=== PATIENT | male | born 1950 | race Caucasian/White ===

== ENCOUNTER 2017-06-11 09:58 | Observation (INO) | payer OTHER ==
[~2017-06-11] VITALS: Ht 180.3 cm; Wt 89.5 kg
--- NOTE | ~2017-06-11 | PRECARD ---
[facility] [address] [facility] [place]. [address] NAME: BENITO MCPHERSON : [birth year] STATUS : ADM IN [facility]#: [id number] AGE: 67 ADM/REG DATE : 06/11/17 MR#: [id number] REPORT SERV DATE: 06/11/17 DICTATED BY: IDALIA ALSTON DATE: 06/11/17 REPORT STATUS : Draft TRANSCRIBED BY: SUZY DATE: 06/11/17 DATE OF ADMISSION: 06/11/2017 CHIEF COMPLAINT: Presyncope. HISTORY OF PRESENT ILLNESS: The patient is a 67-year-old male with carcinoid disease and carcinoid syndrome followed by Dr. Alec Rhoades in Oncology. The patient was seen by his primary care physician for multiple presyncopal episodes. He describes a sensation of lightheadedness with sudden onset of severe weakness followed by sensation that he might pass out. He reports mild dimming of his vision. He then sits down with resolution after several seconds to a minute. A Holter monitor was ordered and the Holter monitor subsequently demonstrated multiple runs of ventricular tachycardia. The patient reports that of late he has been having more frequent serotonin syndrome flushing. These symptoms are completely dissimilar to his presyncopal episodes. PAST MEDICAL HISTORY: 1. 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 Alec Rhoades in Oncology. 2. 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 SOCIAL HISTORY: Denies previous tobacco, alcohol, or illicit drug use. FAMILY HISTORY: Noncontributory. REVIEW OF SYSTEMS: Negative for all organ systems except per the history of present illness. ALLERGIES: PENICILLIN WITH RASH. HOME MEDICATIONS: Diindolylmethane 200 mg daily, multivitamin daily, [id number] potassium 99 mg b.i.d., a probiotic tablet daily, Metamucil daily, and tramadol 50 mg one tablet q.6 hours p.r.n. pain. Somatuline depot injection 120 mg per 0.5 mL; 0.5 mL subcutaneously q.4 hours. PHYSICAL EXAMINATION: VITAL SIGNS: Blood pressure 158/85, pulse 60, weight 198 pounds, and respirations 12 and unlabored. Orthostatic vital signs are negative. GENERAL: Elderly male in no acute distress. HEENT: Normal. NECK: Supple, no JVD or bruit, normal carotid upstroke bilaterally, no thyromegaly. LUNGS: Clear to auscultation and percussion. No wheezes, rales or rhonchi. No use of accessory muscles. CARDIOLOGY: Regular rhythm, normal S1, S2, no thrill, no murmur, rubs or gallops, normal PMI. ABDOMEN: Bowel sounds positive, soft, nontender, and nondistended. No masses or aortic [facility] [address] [id number] [place]. [address] NAME: BENITO MCPHERSON : [birth year] STATUS : ADM IN PAT#: [id number] AGE: 67 ADM/REG DATE : 06/11/17 MR#: [id number] REPORT SERV DATE: 06/11/17 DICTATED BY: IDALIA ALSTON DATE: 06/11/17 REPORT STATUS : Draft TRANSCRIBED BY: MODL DATE: 06/11/17 bruits. No hepatosplenomegaly or hepatojugular reflux. EXTREMITIES: Trace edema of the ankles bilaterally. SKIN: Warm and dry, no significant rash. NEUROLOGIC: Alert and oriented x3. Appropriate mood. DATA: Holter monitor on 06/03/2017; multiple runs of nonsustained ventricular tachycardia with heart rates as rapid as 120 beats per minute. IMPRESSION: Presyncope with recurrent ventricular tachycardia noted on Holter monitor. The patient is admitted to the cardiac Short-Stay Unit for further evaluation. Echocardiogram has been ordered today to re-evaluate the left ventricular systolic function. We have recommended cardiac catheterization with intervention as indicated to rule out flow-limiting coronary artery disease. The risks, benefits, and alternatives of the procedure have been discussed with the patient. The patient's questions have been answered. The patient voiced his understanding of the potential risks and desires to proceed. We have scheduled the patient for cardiac MRI in the a.m. to rule out carcinoid infiltration of the myocardium as a contributor to the arrhythmia. The arrhythmia also may be secondary to serotonin stimulation. We have requested Electrophysiology consultation as an inpatient with consideration/plan for possible electrophysiology stimulation study tomorrow and consideration for permanent defibrillator implantation based upon that testing. Further recommendations based upon the workup as described above. CSL/MODL Deborah Alston M.D. / [id number] CC: Deborah Alston M.D.
--- NOTE | ~2017-06-11 | CN ---
Consultation Report [facility] [address] [place]. [address] NAME: BENITO CALDERÓN : [birth year] STATUS : ADM IN PAT#: [id number] AGE: 67 ADM/REG DATE : 06/11/17 MR#: [id number] REPORT SERV DATE: 06/11/17 DICTATED BY: MICHA GRIFFIN DATE: 06/11/17 REPORT STATUS : Draft TRANSCRIBED BY: MODL DATE: 06/11/17 ELECTROPHYSIOLOGY CONSULTATION DATE OF CONSULTATION: REASON FOR CONSULTATION: Near syncope and ventricular tachycardia. HISTORY OF PRESENT ILLNESS: Mr. Calderón is a very pleasant 67-year-old gentleman with longstanding history of carcinoid disease followed by Dr. Alec Rhoades in Oncology. He has had right heart involvement from the carcinoid and is status post a porcine tricuspid valve replacement for severe tricuspid regurgitation. This was performed by Dr. Wiley Wakefield approximately one year ago. In recent weeks, he has had two episodes of near syncope. 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 On another event, he had just walked downstairs, he did not have significant exertion at that time, and then again felt quite dizzy and lightheaded, needed to lie down until the feeling passed and then it resolved. He denied any palpitations during these events. The patient went to see his primary care physician for these complaints and a Holter monitor was placed. This demonstrated a 28-beat run of wide-complex tachycardia, rate of approximately 135 beats per minute and would seem to be consistent with ventricular tachycardia. He had demonstration of mild bradycardia with average heart rate in the 50s. The longest R to R interval was 2 seconds. There was no profound daytime bradycardia. Apparently, the patient has had known history of sinus bradycardia for many years without any significant symptoms. PAST MEDICAL HISTORY: Notable for carcinoid disease, multiple metastatic hepatic lesions, and right heart involvement with severe tricuspid regurgitation, status post porcine tricuspid valve replacement on 03/12/[address] Wiley Wakefield. HOME MEDICATIONS: Include tramadol, Diindolylmethane 200 mg daily, multivitamin, potassium, probiotic tablet, Somatuline Depot injection. FAMILY HISTORY: Noncontributory. Negative for premature coronary disease. SOCIAL HISTORY: Negative for tobacco, alcohol, or illicit drug use. He is . REVIEW OF SYSTEMS: As noted above. All other systems reviewed and negative. PHYSICAL EXAMINATION: VITAL SIGNS: His blood pressure is 160/90, his pulse is 60 in sinus rhythm with occasional drops in heart rate into the low 50s, respirations 16. GENERAL: Well developed, well nourished. He is in no acute distress. Consultation Report [address] [place]. [address] NAME: BENITO CALDERÓN : [birth year] STATUS : ADM IN PAT#: [id number] AGE: 67 ADM/REG DATE : 06/11/17 MR#: [id number] REPORT SERV DATE: 06/11/17 DICTATED BY: MICHA GRIFFIN DATE: 06/11/17 REPORT STATUS : Draft TRANSCRIBED BY: SUZY DATE: 06/11/17 HEENT: No icterus. Good dentition. NECK: Supple. No masses or thyromegaly LUNGS: Breathing comfortably. No rales or wheezes. COR: Normal S1, S2. No S3 or S4. No murmurs, clicks, rubs. No JVD. ABD: Soft, nondistended, nontender, no hepatosplenomegaly. EXT: No clubbing, cyanosis, or edema. Peripheral pulses 2+/=bilaterally. SKIN: Warm and dry. No visible lesions. MS: Chest wall without deformity, no obvious clavicular fractures. NEURO/PSYCH: Oriented X3. No anxiety or depression. EKG shows sinus rhythm, normal HI, QRS, QT intervals. No evidence for ischemia, infarction, or chamber hypertrophy. IMPRESSION: Somewhat complicated patient with longstanding history of carcinoid disease and right heart involvement. He has a porcine tissue valve tricuspid valve replacement which makes access to the right ventricle difficult. He has presyncope and has had a long run of nonsustained wide-complex tachycardia, rate of 135 beats per minute noted on his Holter monitor. He also has intermittent sinus bradycardia that has been notable for several years and has been asymptomatic in the past. The bradycardia did not demonstrate any profound daytime events with the longest R to R interval 2 seconds. As far as the ventricular tachycardia is concerned, it is a long run of ventricular tachycardia but still considered nonsustained ventricular tachycardia. It was not clearly symptomatic at the time of the event. I believe he would need an electrophysiology study to determine whether he is a candidate for a defibrillator. He did undergo an echocardiogram today, which showed a reduced systolic function of approximately 40-45%. It is somewhat unclear whether we can easily place a catheter across the tricuspid valve. If not, my recommendation would be that we perform an electrophysiology study via a retrograde approach through the aorta and pacing the left ventricle. We would do this following the left heart catheterization being performed to rule out coronary disease, so we would already have femoral arterial access in place. Once we have the information as to whether he has easily inducible for ventricular tachycardia, we can decide whether he requires consideration for defibrillator. At that point, we must decide whether he could undergo a transvenous ICD system. I would be concerned about this given his history of carcinoid syndrome, tricuspid valve replacement, risks of scarring of the porcine valve, or malfunction of the ICD lead. Another course of action would be to have him undergo a subcutaneous ICD placement, although we would need to decide on whether he would need backup pacing or not. It is my understanding that he probably could have an S-ICD placed at the same time that he has a transvenous pacing system, either paced via AAI pacemaker or potentially through a His-bundle pacemaker. UGO/SZUY Micha Griffin M.D. Consultation Report [address] [address] NAME: BENITO CALDERÓN : [birth year] STATUS : ADM IN [facility]#: [id number] AGE: 67 ADM/REG DATE : 06/11/17 MR#: [id number] REPORT SERV DATE: 06/11/17 DICTATED BY: MICHA GRIFFIN DATE: 06/11/17 REPORT STATUS : Draft TRANSCRIBED BY: SUZY DATE: 06/11/17 / [id number] CC: Deborah Alston M.D.
[~2017-06-11 09:58] MED LIST: AHCC PO; ASA5GR PO; BENTYL10 PO; CALCIUM PO; CO Q-10100 MG PO; COSAMIN DS1 TAB PO; COUMADIN4 MG PO; DIM PO; L20 PO; LOP25 PO; MULTIPLE VIT PO; POTASSIUM AMINO ACID PO; POTASSIUM PO; PRIN20 PO; PROAIRRESP INH; PROBIOTIC PO; PROCTOZONE1 CRE PR; SOMATULINE SC; SOMATULINE90 MG/0.3 SC; ULTRAM50 PO; VITAMIN D31000 UNIT PO; VITC500 PO; ZESTORETIC1 TAB PO; [UNRECOGNIZED DRUG - MIXTURE] PO; [UNRECOGNIZED DRUG - OTHER]; [UNRECOGNIZED DRUG - OTHER]; [UNRECOGNIZED DRUG - OTHER] PO; [UNRECOGNIZED DRUG - OTHER] PO
[2017-06-11 10:50] LABS: BASOPHILS 0.5 %; BASOPHILS ABSOLUTE 0.04 10/3/uL (0.0-0.16); EOSINOPHILS 2.8 %; EOSINOPHILS ABSOLUTE 0.21 10/3/uL (0.0-0.53); HEMATOCRIT 41.1 % (40.0-51.0); HEMOGLOBIN 12.9 g/dL (13.6-17.8); IMMATURE GRANULOCYTES 0.3 %; IMMATURE GRANULOCYTES ABSOLUTE 0.02 10/3/uL (0.0-0.11); LYMPHOCYTES 21.8 %; LYMPHOCYTES ABSOLUTE 1.63 10/3/uL (0.67-4.30); MEAN CORPUS HGB CONC 31.4 g/dL (32.0-36.0); MEAN CORPUSCULAR HEMOGLOB 27.2 pg (26.0-34.0); MEAN PLATELET VOLUME 10.5 fL (9.2-13.0); MONOCYTES 9.6 %; MONOCYTES ABSOLUTE 0.72 10/3/uL (0.21-1.20); NEUTROPHILS ABSOLUTE 4.86 10/3/uL (2.02-8.40); PLATELET COUNT 265 10/3/uL (150-400); RBC DISTRIBUTION WIDTH 15.4 % (12.0-16.0); RED CELL COUNT 4.75 10/6/uL (4.7-6.1); WHITE BLOOD CELLS 7.5 10/3/uL (4.5-10.5)
[2017-06-11 10:54] LABS: MANUAL DIFF NO %; MEAN CORPUSCULAR VOLUME 86.5 fL (80-100)
[2017-06-11] MEDS ORDERED: METPAKSF PO (10:56)
[2017-06-11] MEDS ORDERED: NAC600 MG PO (10:58)
[2017-06-11] MEDS ORDERED: [UNRECOGNIZED DRUG - OTHER] PO (10:59)
[2017-06-11] MEDS ORDERED: [UNRECOGNIZED DRUG - OTHER] PO (11:00)
[2017-06-11] MEDS ORDERED: [UNRECOGNIZED DRUG - OTHER] PO (11:00)
[2017-06-11 11:10] LABS: A/G RATIO 0.9 (0.7-1.9); ALBUMIN 3.8 G/DL (3.5-5.0); ALKALINE PHOSPHATASE 162 U/L (45-117); BUN (BLOOD UREA NITROGEN) 22 MG/DL (6-23); CALCIUM, SERUM 8.9 MG/DL (8.5-10.4); CHLORIDE, SERUM 108 MMOL/L (96-112); CO2 (CARBON DIOXIDE) 28 MMOL/L (24-34); CREATININE 0.89 MG/DL (0.70-1.30); GFR AFRICAN AMERICAN 102 ML/MIN (>=60); GFR NON AFRICAN AMERICAN 88 ML/MIN (>=60); GLOBULIN 4.3 G/DL (2.5-4.1); GLUCOSE, SERUM 67 MG/DL (60-99); POTASSIUM, SERUM 4.4 MMOL/L (3.5-5.3); SGOT(AST) 31 U/L (5-40); SGPT(ALT) 37 U/L (5-65); SODIUM, SERUM 142 MMOL/L (135-148); TOTAL BILIRUBIN 0.8 MG/DL (0-1.2); TOTAL PROTEIN 8.1 G/DL (6.0-8.5)
[2017-06-11 11:11] LABS: INTERNATIONAL NORMAL RATI 1.2 UNITS (-); PROTIME (NOT ORD) 14.6 SEC (12.0-14.5)
[2017-06-11 12:05] LABS: CHOL/HDL RATIO(NOT ORDER) 4.9 (0-5); CHOLESTEROL 175 MG/DL (< 200); LDL CHOLESTEROL 93 MG/DL (< 130); NON-HDL CHOLESTEROL 139 MG/DL (< 160); TRIGLYCERIDE 234 MG/DL (< 150)
[2017-06-11 12:06] LABS: HDL CHOLESTEROL 36 MG/DL (> 39)
[2017-06-12 05:54] LABS: BASOPHILS 0.4 %; BASOPHILS ABSOLUTE 0.03 10/3/uL (0.0-0.16); EOSINOPHILS 1.9 %; EOSINOPHILS ABSOLUTE 0.13 10/3/uL (0.0-0.53); HEMOGLOBIN 11.7 g/dL (13.6-17.8); IMMATURE GRANULOCYTES 0.4 %; IMMATURE GRANULOCYTES ABSOLUTE 0.03 10/3/uL (0.0-0.11); LYMPHOCYTES 21.8 %; LYMPHOCYTES ABSOLUTE 1.51 10/3/uL (0.67-4.30); MEAN CORPUS HGB CONC 32.6 g/dL (32.0-36.0); MEAN CORPUSCULAR HEMOGLOB 27.9 pg (26.0-34.0); MEAN CORPUSCULAR VOLUME 85.7 fL (80-100); MEAN PLATELET VOLUME 10.3 fL (9.2-13.0); MONOCYTES 8.2 %; MONOCYTES ABSOLUTE 0.57 10/3/uL (0.21-1.20); NEUTROPHILS 67.3 %; NEUTROPHILS ABSOLUTE 4.66 10/3/uL (2.02-8.40); PLATELET COUNT 232 10/3/uL (150-400); RBC DISTRIBUTION WIDTH 15.2 % (12.0-16.0); RED CELL COUNT 4.19 10/6/uL (4.7-6.1); WHITE BLOOD CELLS 6.9 10/3/uL (4.5-10.5)
[2017-06-12 06:00] LABS: HEMATOCRIT 35.9 % (40.0-51.0); MANUAL DIFF NO %
[2017-06-12 06:09] LABS: CALCIUM, SERUM 8.3 MG/DL (8.5-10.4); CHLORIDE, SERUM 107 MMOL/L (96-112); CO2 (CARBON DIOXIDE) 26 MMOL/L (24-34); CREATININE 0.85 MG/DL (0.70-1.30); GFR AFRICAN AMERICAN 104 ML/MIN (>=60); GFR NON AFRICAN AMERICAN 90 ML/MIN (>=60); POTASSIUM, SERUM 4.2 MMOL/L (3.5-5.3); SODIUM, SERUM 141 MMOL/L (135-148)
[2017-06-12 06:10] LABS: BUN (BLOOD UREA NITROGEN) 17 MG/DL (6-23); GLUCOSE, SERUM 101 MG/DL (60-99)
[2017-06-12] MEDS ORDERED: ULTRAM50 PO (12:18)
== END 2017-06-12 12:48 | disposition home or self-care (01) ==
LOC: ENRESERVDT → ENRESERVTM → ENRESERV → SSU1 10:00
PROVIDERS: Internal Medicine Cardiovascular Disease; Internal Medicine Clinical Cardiac Electrophysiology
PROC: 4A023N7 Measurement of Cardiac Sampling and Pressure, Left Heart, Percutaneous Approach (ICD-10-PCS; principal; 2017-06-11)
PROC: B2111ZZ Fluoroscopy of Multiple Coronary Arteries using Low Osmolar Contrast (ICD-10-PCS; 2017-06-11)
PROC: B2151ZZ Fluoroscopy of Left Heart using Low Osmolar Contrast (ICD-10-PCS; 2017-06-11)
DX: I25.10 Atherosclerotic heart disease of native coronary artery without angina pectoris (principal); I47.2 Ventricular tachycardia; E11.9 Type 2 diabetes mellitus without complications; E78.00 Pure hypercholesterolemia, unspecified; N40.0 Benign prostatic hyperplasia without lower urinary tract symptoms; K58.9 Irritable bowel syndrome, unspecified; M19.90 Unspecified osteoarthritis, unspecified site; Z79.899 Other long term (current) drug therapy; Z88.0 Allergy status to penicillin; Z91.048 Other nonmedicinal substance allergy status; Z90.89 Acquired absence of other organs; Z90.49 Acquired absence of other specified parts of digestive tract; Z98.890 Other specified postprocedural states; Z95.2 Presence of prosthetic heart valve; Z85.038 Personal history of other malignant neoplasm of large intestine
CPT/HCPCS: 33282; 75561; 80048; 80053; 80061; 83735; 85025; 85347; 85610; 93005; 93306; 93458; 93571; 96374; 99152; A9270-GY; A9577; C1764; C1769; C1887; C1894; G0378; J0360; J0690; J2250; J2370; J2405; J3010; Q9967